=== PATIENT | female | born 1955 | race Caucasian/White ===

== ENCOUNTER → 2016-05-07 | Outpatient (CLI) | payer OTHER ==
[~2016-05-07] MED LIST: ACET-1256 PO; ASCO500T16 PO; ASPI81TA28 PO; B-CO1TAB53 PO; CALC1TAB64 PO; CELE1CAP30 PO; CLC150 PO; FLNIN/ NAE; GLUCTAB7 PO; IPRA1AER2 INH; IPRASOL4 INH; LEVO100T7 PO; LXP/20 PO; LXP10 PO; METH500T37 PO; MOME200A INH; MULTTAB58 PO; NCDT21 TD; NORT75CA PO; NRN600 PO; OMEP20CA9 PO; ONDA-63 PO; POTA20TA16 PO; RXC5 PO; TPM100 PO; WLLSR150 PO; ZCR40 PO
== END | disposition home or self-care (01) ==
LOC: C.LABSPEC 13:38
PROVIDERS: ATTEND Internal Medicine
DX: R19.7 Diarrhea, unspecified (principal)

== ENCOUNTER → 2016-06-23 | Outpatient (CLI) | payer OTHER ==
[2016-07-02 11:48] LABS: O&P SOURCE OTHER-STOOL
== END | disposition home or self-care (01) ==
LOC: C.LABSPEC 12:53
PROVIDERS: ATTEND Internal Medicine
DX: R19.7 Diarrhea, unspecified (principal)

== ENCOUNTER → 2016-08-12 | Outpatient (CLI) | payer OTHER ==
[2016-08-12 18:48] LABS: BLOOD UREA NITROGEN 15 mg/dl (7-18); BUN/CREATININE RATIO 13.2 (10-20); CALCIUM 9.1 mg/dl (8.5-10.1); CARBON DIOXIDE 24 mmol/L (21-32); CHLORIDE 108 mmol/L (98-107); GLUCOSE 93 mg/dl (70-99); POTASSIUM 3.8 mmol/L (3.5-5.1); SODIUM 140 mmol/L (136-145)
[2016-08-12 18:58] LABS: THYROID STIMULATING HORMONE 0.307 uIu/ml (0.300-4.500)
== END | disposition home or self-care (01) ==
LOC: C.LABBFT 15:06
PROVIDERS: ATTEND Physician Assistant Medical
DX: M79.606 Pain in leg, unspecified (principal); E03.9 Hypothyroidism, unspecified

== ENCOUNTER 2016-08-26 20:34 | Emergency (ER) | payer OTHER ==
[~2016-08-26] VITALS: Ht 162.6 cm; Wt 68.9 kg
[2016-08-26 20:35] VITALS: BP 113/73; PULSE 73; TEMP 36.9; O2SAT 100; Ht 162.6 cm; Wt 68.9 kg
--- NOTE | 2016-08-26 20:52 | EMERGENCY ROOM VISIT NOTE ---
History First contact with patient: 20:40 Chief Complaint: NASAL PAIN/INJURY Stated Complaint: HURT NOSE History of Present Illness The patient is a 61 year old female who presents to the Emergency Room with complaints of fall. The patient states that last night she was walking without her cane and she tripped on the sidewalk and fell forward. She reports injuring her nose and the back of her head. She denies any loss of consciousness, nausea or vomiting. She denies any headache. She states she sustained a cut to the outside of her nose and her nose bled from the inside as well. She rates her discomfort a 3/10. She denies any neck pain. She denies any syncope, pain in her chest or trouble feeding. She states she saw her family doctor today and was referred for imaging. Review of Systems A 10 system review of systems was completed with positives and pertinent negatives listed in the HPI. Past Medical/Surgical History Medical Problems: (1) Altered mental status (2) Arthritis of left knee (3) [id number] nonsyndromic deafness, autosomal dominant (4) Cellulitis of left lower extremity (5) Chronic obstructive lung disease (6) Depression (7) Diabetes mellitus (8) Fall (9) Hyperlipidemia (10) Hypothyroidism (11) Kidney stone Family History FH: sudden cardiac (SCD) Heart disease Social History Smoking Status: Current Every Day Smoker Alcohol Use: none Drug Use: none Marital Status: single Housing Status: lives with family Occupation Status: disabled Current/Historical Medications Scheduled Ascorbic Acid (Ascorbic Acid), 500 MG PO QPM Aspirin (Aspirin Ec), 81 MG PO BID B-Complex W/Biotin & Folic Aci (Super B-Complex), 1 TAB PO QPM Bupropion HCl (Bupropion HCl Sr), 150 MG PO BID Calcium Carbonate-Cholecalcife (Calcium 500/Vitamin D3), 1 TAB PO QPM Celecoxib (Celecoxib), 200 MG PO BID Clindamycin HCl (Clindamycin HCl), 300 MG PO Q6 Escitalopram Oxalate (Escitalopram Oxalate), 10 MG PO QAM Escitalopram Oxalate (Escitalopram Oxalate), 20 MG PO QAM Gabapentin (Gabapentin), 600 MG PO QID Vessraiiarm-Wdhwqppirhh-Uzr C- (Glucosamine Chondroitin), 2 TABS PO QPM Levothyroxine Sodium (Levothyroxine Sodium), 100 MCG PO QAM Methocarbamol (Robaxin), 500 MG PO BID Multiple Vitamin (Multivitamin), 1 TAB PO QPM Nicotine (Nicotine), 1 PATCH TD QAM Nortriptyline Hcl (Pamelor), 150 MG PO HS Omeprazole (Prilosec), 20 MG PO QPM Potassium Ext Rel (Klor-Con), 20 MEQ PO QPM Simvastatin (Simvastatin), 40 MG PO HS Topiramate (Topiramate), 200 MG PO BID Scheduled PRN Acetaminophen (Tylenol), 1,000 MG PO Q8 PRN for Pain Fluticasone Propionate (Fluticasone Propionate), 2 SPRAYS BIMAL DAILY PRN for Allergy Symptoms Ipratropium-Albuterol (Combivent Respimat), 1 PUFF INH QID PRN for Shortness of Breath Ipratropium-Albuterol (Duoneb), 1 TREATMENT INH Q6H PRN for Shortness of Breath Mometasone Furoate-Formoterol (Dulera 200/5 Mcg), 2 PUFFS INH BID PRN for Shortness of Breath Ondansetron (Ondansetron HCl), 8 MG PO Q8 PRN for Nausea Oxycodone HCl (Oxycodone HCl), 5 MG PO Q6H PRN for Pain Allergies Coded Allergies: Influenza Vaccine Live (Verified Allergy, Severe, ANAPHYLAXIS, 03/07/16) Physical Exam Vital Signs Date Time Temp Pulse Resp B/P Pulse Ox O2 Delivery O2 Flow Rate FiO2 08/26/16 20:35 36.9 73 20 113/73 100 Room Air Physical Exam VITALS: Vitals are noted on the nurse's note and reviewed by myself. Vital signs stable. GENERAL: This is a 61-year-old female, in no acute distress, nondiaphoretic, well-developed well-nourished. SKIN: There is ecchymosis noted beneath the eyes and around the nose. There is ecchymosis noted to the maxilla. There is a very small, superficial, nonbleeding laceration that measures less than 0.5 cm to the bridge of the nose. It does not gape and there is no active bleeding. There is no tenting of the skin. Capillary reflex less than 2 seconds. HEAD: There is an abrasion to the right posterior scalp. There is no bleeding. EARS: External auditory canals clear, tympanic membranes pearly ramos without erythema or effusion bilaterally. No hemotympanums. No miranda sign. No mastoid tenderness. EYES: Pupils equal round and reactive to light and accommodation. Conjunctivae without injection, sclerae without icterus. Extraocular movements intact. Fundoscopic exam without hemorrhages or papilledema. NOSE: Patent, turbinates without inflammation or discharge. No sinus tenderness. No septal hematoma or bleeding. FACE: No facial tenderness. Full range of motion of the jaw without tenderness. MOUTH: Mucous membranes moist. Pharynx without erythema or exudate. Uvula midline. Airway patent. Tongue does not deviate. NECK: Supple without nuchal rigidity. Cervical spine is nontender. Full range of motion of the neck without tenderness. No JVD. HEART: Regular rate and rhythm without murmurs gallops or rubs. LUNGS: Diminished throughout. No retractions or accessory muscle use. No chest tenderness. ABDOMEN: Positive bowel sounds x 4. Strength Soft, nontender, without masses or organomegaly. MUSCULOSKELETAL: No muscle atrophy, erythema, or edema noted. Full range of motion without joint tenderness in all extremities. No tenderness to palpation. Normal gait. Strength 5/5 throughout. NEURO: Patient was alert and oriented to person place and time. Normal Mini- Mental status exam. No focal neurological deficits. Medical Decision & Procedures ED Course The patient was seen and examined. Previous visits were reviewed. The patient fell last night. She reports a mechanical fall. I saw the patient in D7 and performed an examination. At the end of the exam, she stated she saw her family doctor and was referred here for imaging. She states she believes that there was an order placed. I did look through the order history on the computer and could not find any imaging ordered. I did order CT imaging. At this time, I spoke with the charge nurse, Laurita, she spoke with the patient and with registration unverified there was an outpatient order for x-ray., The patient only wanted to have the x-ray performed and wanted to leave the emergency department. Therefore, the imaging was canceled and she left the ED. Apparently, the patient was sent to an brought back to the emergency department in error and was simply to have an outpatient x-ray performed for which she had an order. Medical Decision The differential diagnosis includes: head or neck trauma, cerebrovascular disorders, intracranial lesions, infection,transient ischemic attack (TIA), CVA , seizure, syncope, intracranial mass, intracranial bleeding and vestibular disorders, nasal fracture, facial fracture, among others among others Departure Information Referrals Henry White M.D. (PCP) Patient Instructions My [facility]
== END 2016-08-26 21:45 | disposition home or self-care (01) ==
LOC: C.EDB 20:34 → C.EDD 21:45
DX: S09.92XA Unspecified injury of nose, initial encounter (principal); W19.XXXA Unspecified fall, initial encounter; Z91.19 Patient's noncompliance with other medical treatment and regimen; E78.5 Hyperlipidemia, unspecified; E11.9 Type 2 diabetes mellitus without complications; E03.9 Hypothyroidism, unspecified; J44.9 Chronic obstructive pulmonary disease, unspecified; F32.9 Major depressive disorder, single episode, unspecified; M17.12 Unilateral primary osteoarthritis, left knee; F17.200 Nicotine dependence, unspecified, uncomplicated; Z87.442 Personal history of urinary calculi; Z91.81 History of falling; Z79.82 Long term (current) use of aspirin; Z79.899 Other long term (current) drug therapy; Z88.8 Allergy status to other drugs, medicaments and biological substances; Z82.49 Family history of ischemic heart disease and other diseases of the circulatory system

== ENCOUNTER → 2016-09-04 | Day surgery (SDC) | payer OTHER ==
[2016-08-30 10:40] VITALS: Ht 162.6 cm; Wt 69.5 kg
[~2016-09-04] VITALS: Ht 162.6 cm; Wt 69.5 kg
[~2016-09-04] MED LIST changes: +LIDOCAINE HCL 2% 2 ML VIAL (20MG/ML) ONE; +PROPOFOL IV EMULSION 10 MG/ML 20 ML VIAL IV ONE; +SODIUM CHLORIDE 0.9% 500ML 500 ML IV ONE
[2016-09-04 11:37] VITALS: TEMP 36.8
--- NOTE | 2016-09-04 12:54 | Endo History and Physical ---
History & Physical Date of Service: September 04, 2016. Chief Complaint: diarrhea Referring Physician: Dr. Henry White History of Present Illness 61 yo CF who presents for colonoscopy secondary to diarrhea. Past Medical History Arthritis, Asthma, Reflux, Hypertension, Thyroid Disease, Depression Past Surgical History Hx Cardiac Surgery: No Hx Internal Defibrillator: No Hx Pacemaker: No Hx Abdominal Surgery: Yes (TUBAL LIGATION) Hx of Implantable Prosthesis: No Hx Post-Op Nausea and Vomiting: No Hx Cancer Surgery: No Hx Thoracic Surgery: No Hx Orthopedic: Yes (RT/LT CTR, LT TKA) Hx Urinary Tract Surgery: No Family History Colon CA Social History Smoking Status: Current Every Day Smoker Hx Substance Use: No Hx Alcohol Use: No Allergies Coded Allergies: Influenza Vaccine Live (Verified Allergy, Severe, ANAPHYLAXIS, 08/30/16) Current Medications Reported Home Medications Medications Dose Route/Sig Max Daily Dose Days Date Category Dose Instructions Tylenol (Acetaminophen) 500 Mg Tab 1,000 Mg PO Q8 PRN 03/23/16 Reported Topiramate 100 Mg Tab 200 Mg PO BID 03/23/16 Reported Gabapentin 600 Mg Tab 600 Mg PO QID 03/23/16 Reported Celecoxib 200 Mg Cap 200 Mg PO BID 03/23/16 Reported Bupropion HCl Sr (Bupropion HCl) 150 Mg Tabcr 150 Mg PO BID 03/23/16 Reported Escitalopram Oxalate 20 Mg Tab 20 Mg PO QAM 03/23/16 Reported TAKE ONE 20 MG TABLET ALONG WITH ONE 10 MG TABLET TO EQUAL DAILY DOSE OF 30 MG. Escitalopram Oxalate 10 Mg Tab 10 Mg PO QAM 03/23/16 Reported TAKE ONE 10 MG TABLET ALONG WITH ONE 20 MG TABLET TO EQUAL DAILY DOSE OF 30 MG. Prilosec (Omeprazole) 20 Mg Cap 20 Mg PO QPM 03/23/16 Reported Dulera 200/5 Mcg (Mometasone Furoate-Formoterol) 1 Aer Aer 2 Puffs INH BID PRN 03/23/16 Reported Fluticasone Propionate 120 Sprays/6000 Mcg Inha 2 Sprays BIMAL DAILY PRN 03/23/16 Reported Simvastatin 40 Mg Tab 40 Mg PO HS 03/23/16 Reported Robaxin (Methocarbamol) 500 Mg Tab 500 Mg PO BID 02/21/16 Reported Klor-Con (Potassium Chloride) 20 Meq Tabcr 20 Meq PO QPM 02/21/16 Reported Levothyroxine Sodium 100 Mcg Tab 100 Mcg PO QAM 02/21/16 Reported Duoneb (Ipratropium-Albuterol) 3 Ml Nebu 1 Treatment INH Q6H PRN 07/18/15 Reported Combivent Respimat (Ipratropium-Albuterol) 1 Aer Aer 1 Puff INH QID PRN 04/14/15 Reported Calcium 500/Vitamin D3 (Calcium Carbonate-Cholecalcife) 1 Tab Tab 1 Tab PO QPM 04/14/15 Reported Ascorbic Acid 500 Mg Tab 500 Mg PO QPM 04/14/15 Reported Multivitamin (Multiple Vitamin) 1 Tab Tab 1 Tab PO QPM 04/14/15 Reported Super B-Complex (B-Complex W/Biotin & Folic Aci) 1 Tab Tab 1 Tab PO QPM 04/14/15 Reported Pamelor (Nortriptyline Hcl) 75 Mg Cap 150 Mg PO HS 01/27/12 Reported Vital Signs Weight (Kilograms): 69.55 Height (Feet): 5 Height (Inches): 4 Date Time Temp Pulse Resp B/P Pulse Ox O2 Delivery O2 Flow Rate FiO2 09/04/16 11:37 36.8 79 20 123/57 92 Room Air Physical Exam General Appearance: WD/WN, no apparent distress Respiratory/Chest: Auscultation: breath sounds normal Cardiovascular: Heart Auscultation: RRR Abdomen: Bowel Sounds: normal Inspection & Palpation: soft, non-distended, no tenderness, guarding & rebound Assessment and Plan Assessment: 61 yo CF who presents for colonoscopy secondary to diarrhea. Plan: Proceed with colonoscopy.
--- NOTE | 2016-09-04 13:18 | Discharge Instructions ---
Endoscopy Patient Instructions Date / Procedure(s) Performed September 04, 2016. Colonoscopy Allergy Information Coded Allergies: Influenza Vaccine Live (Verified Allergy, Severe, ANAPHYLAXIS, 08/30/16) Discharge Date / Findings September 04, 2016. Random colon biopsies Stools studies collected Internal hemorrhoids Medication Instructions OK to resume all medications today as prescribed Reported Home Medications Medications Dose Route/Sig Max Daily Dose Days Date Category Dose Instructions Tylenol (Acetaminophen) 500 Mg Tab 1,000 Mg PO Q8 PRN 03/23/16 Reported Topiramate 100 Mg Tab 200 Mg PO BID 03/23/16 Reported Gabapentin 600 Mg Tab 600 Mg PO QID 03/23/16 Reported Celecoxib 200 Mg Cap 200 Mg PO BID 03/23/16 Reported Bupropion HCl Sr (Bupropion HCl) 150 Mg Tabcr 150 Mg PO BID 03/23/16 Reported Escitalopram Oxalate 20 Mg Tab 20 Mg PO QAM 03/23/16 Reported TAKE ONE 20 MG TABLET ALONG WITH ONE 10 MG TABLET TO EQUAL DAILY DOSE OF 30 MG. Escitalopram Oxalate 10 Mg Tab 10 Mg PO QAM 03/23/16 Reported TAKE ONE 10 MG TABLET ALONG WITH ONE 20 MG TABLET TO EQUAL DAILY DOSE OF 30 MG. Prilosec (Omeprazole) 20 Mg Cap 20 Mg PO QPM 03/23/16 Reported Dulera 200/5 Mcg (Mometasone Furoate-Formoterol) 1 Aer Aer 2 Puffs INH BID PRN 03/23/16 Reported Fluticasone Propionate 120 Sprays/6000 Mcg Inha 2 Sprays BIMAL DAILY PRN 03/23/16 Reported Simvastatin 40 Mg Tab 40 Mg PO HS 03/23/16 Reported Robaxin (Methocarbamol) 500 Mg Tab 500 Mg PO BID 02/21/16 Reported Klor-Con (Potassium Chloride) 20 Meq Tabcr 20 Meq PO QPM 02/21/16 Reported Levothyroxine Sodium 100 Mcg Tab 100 Mcg PO QAM 02/21/16 Reported Duoneb (Ipratropium-Albuterol) 3 Ml Nebu 1 Treatment INH Q6H PRN 07/18/15 Reported Combivent Respimat (Ipratropium-Albuterol) 1 Aer Aer 1 Puff INH QID PRN 04/14/15 Reported Calcium 500/Vitamin D3 (Calcium Carbonate-Cholecalcife) 1 Tab Tab 1 Tab PO QPM 04/14/15 Reported Ascorbic Acid 500 Mg Tab 500 Mg PO QPM 04/14/15 Reported Multivitamin (Multiple Vitamin) 1 Tab Tab 1 Tab PO QPM 04/14/15 Reported Super B-Complex (B-Complex W/Biotin & Folic Aci) 1 Tab Tab 1 Tab PO QPM 04/14/15 Reported Pamelor (Nortriptyline Hcl) 75 Mg Cap 150 Mg PO HS 01/27/12 Reported Provider Instructions Activity Restrictions - No exercising or heavy lifting for 24 hours. - Do not drink alcohol the day of the procedure. - Do not drive a car or operate machinery until the day after the procedure. - Do not make any important decisions or sign important papers in 24 hours after the procedure. Following Day: - Return to full activity which may include returning to work/school. Diet Start your diet with liquids and light foods (jello, soup, juice, toast). Then eat your usual diet if not nauseated. Treatment For Common After Affects For mild abdominal pain, bloating, or excessive gas: - Rest - Eat lightly - Lie on right side Follow-Up Information Follow-up with Dr. Henry White as scheduled Anesthesia Information What You Should Know You have had a procedure that required some medicine to reduce anxiety and discomfort. This treatment is called moderate sedation. After receiving the treatment, you may be sleepy, but you will be able to breathe on your own. The effects of the treatment may last for several hours. Follow these instructions along with Activity/Diet recommendations noted above: * Do NOT do anything where dizziness or clumsiness would be dangerous. * Rest quietly at home today, then you can be up and about tomorrow. * Have a responsible person stay with you the rest of today. * You may have had an I.V. today. If so, you may take the dressing off later today. Recommendations Call your doctor if: * Trouble breathing * Continuous vomiting for more than 24 hours * Temperature above 101 degrees * Severe abdominal pain or bloating * Pain not relieved by pain medicine ordered * There is increased drainage or redness from any incision * A large amount of rectal bleeding greater than 2-3 tablespoons. (If you had a polyp/s removed or have hemorrhoids, a small amount of blood - from the rectum is to be expected.) * You have any unanswered questions or concerns. IN THE EVENT OF A SERIOUS EMERGENCY, GO TO THE NEAREST EMERGENCY ROOM Your discharge instructions were prepared by provider Eduin Mireles. Patient Instructions Signature Page Cass Rashid Patient (or Guardian) Signature/Date: I have read and understand the instructions given to me by my caregivers. Caregiver/RN/Doctor Signature/Date: The above-named patient and/or guardian has received patient instructions on this date. + Original Patient Signature Page (only) stays with chart. Please make copy for patient.
--- NOTE | 2016-09-04 13:24 | GI REPORT ---
Procedure Date: 09/04/2016 12:37 PM Procedure: Colonoscopy Indications: Chronic diarrhea Medicines: Monitored Anesthesia Care Complications: No immediate complications. Estimated Blood Loss: Estimated blood loss: none. Procedure: Pre-Anesthesia Assessment: - Prior to the procedure, a History and Physical was performed, and patient medications and allergies were reviewed. The patient's tolerance of previous anesthesia was also reviewed. The risks and benefits of the procedure and the sedation options and risks were discussed with the patient. All questions were answered, and informed consent was obtained. Prior Anticoagulants: The patient has taken no previous anticoagulant or antiplatelet agents. ASA Grade Assessment: III - A patient with severe systemic disease. After reviewing the risks and benefits, the patient was deemed in satisfactory condition to undergo the procedure. After I obtained informed consent, the scope was passed under direct vision. Throughout the procedure, the patient's blood pressure, pulse, and oxygen saturations were monitored continuously. The scope was introduced through the anus and advanced to the terminal ileum. The colonoscopy was performed without difficulty. The patient tolerated the procedure well. The quality of the bowel preparation was fair. The terminal ileum, ileocecal valve, appendiceal orifice, and rectum were photographed. Findings: Non-bleeding internal hemorrhoids were found during retroflexion. The hemorrhoids were small. Several random biopsies were obtained with cold forceps for histology in the entire colon. Fluid aspiration for cytology was performed in the entire colon. Impression: - Non-bleeding internal hemorrhoids. - Several random biopsies were obtained in the entire colon. - Fluid aspiration was performed. Recommendation: - Resume previous diet. - Continue present medications. - Repeat colonoscopy for surveillance based on pathology results. - Return to primary care physician as previously scheduled. Eduin Mrieles DO 09/04/2016 1:23:53 PM This report has been signed electronically. Note Initiated On: 09/04/2016 12:37 PM I attest to the content of the Intraoperative Record and orders documented therein, exceptions below
[2016-09-04 13:47] VITALS: BP 136/68; PULSE 60; O2SAT 99
--- NOTE | 2016-09-04 13:47 | Anesthesiology Progress Note ---
Anesthesia Post Op Note Date & Time September 04, 2016 at 13:47 Vital Signs Pain Intensity: 0 Vital Signs Past 12 Hours Date Time Temp Pulse Resp B/P Pulse Ox O2 Delivery O2 Flow Rate FiO2 09/04/16 13:32 64 18 132/58 99 Room Air 09/04/16 13:17 63 16 139/66 100 Room Air 09/04/16 11:37 36.8 79 20 123/57 92 Room Air Notes Mental Status: alert / awake / arousable, participated in evaluation Pt Amnestic to Procedure: Yes Nausea / Vomiting: adequately controlled Pain: adequately controlled Airway Patency, RR, SpO2: stable & adequate BP & HR: stable & adequate Hydration State: stable & adequate Anesthetic Complications: no major complications apparent
== END | disposition home or self-care (01) ==
LOC: C.GI 10:59
PROVIDERS: ATTEND Internal Medicine
DX: K52.9 Noninfective gastroenteritis and colitis, unspecified (principal); K64.8 Other hemorrhoids; K21.9 Gastro-esophageal reflux disease without esophagitis; F32.9 Major depressive disorder, single episode, unspecified; I10 Essential (primary) hypertension; J45.909 Unspecified asthma, uncomplicated; Z98.51 Tubal ligation status; F17.200 Nicotine dependence, unspecified, uncomplicated; Z96.652 Presence of left artificial knee joint; Z68.26 Body mass index [BMI] 26.0-26.9, adult; Z88.7 Allergy status to serum and vaccine; Z80.0 Family history of malignant neoplasm of digestive organs

== ENCOUNTER → 2017-01-17 | Outpatient (CLI) | payer OTHER ==
[~2017-01-17] MED LIST changes: -ASPI81TA28 PO; -CLC150 PO; -GLUCTAB7 PO; -LIDOCAINE HCL 2% 2 ML VIAL (20MG/ML) ONE; -NCDT21 TD; -ONDA-63 PO; -PROPOFOL IV EMULSION 10 MG/ML 20 ML VIAL IV ONE; -RXC5 PO; -SODIUM CHLORIDE 0.9% 500ML 500 ML IV ONE
--- NOTE | 2017-01-17 14:54 | MAMMOGRAPHY REPORT ---
BILATERAL DIGITAL SCREENING MAMMOGRAM TOMOSYNTHESIS WITH CAD: 01/17/2017 CLINICAL HISTORY: Routine screening. Patient has no complaints. TECHNIQUE: Breast tomosynthesis in addition to standard 2D mammography was performed. Current study was also evaluated with a Computer Aided Detection (CAD) system. COMPARISON: Comparison is made to exams dated: 08/03/2013 mammogram, 04/25/2011 mammogram, 04/23/2010 kim mogram, 04/19/2009 mammogram - [facility], 04/18/2008, and 04/17/2007. BREAST COMPOSITION: There are scattered areas of fibroglandular density in both breasts. FINDINGS: No suspicious masses, calcifications, or areas of architectural distortion are noted in ei ther breast. There has been no significant interval change compared to prior exams. IMPRESSION: ACR BI-RADS CATEGORY 1: NEGATIVE There is no mammographic evidence of malignancy. A 1 year screening mammogram is recommended. The pa tient will receive written notification of the results. Approximately 10% of breast cancers are not detected with mammography. A negative mammographic report should not delay biopsy if a clinically suggestive mass is present. Jena Donohue M.D. /:01/17/2017 12:29:30 Area Director: Lory SOOD)([place]), [facility] letter sent: Normal 1/2 BI-RADS Code: ACR BI-RADS Category 1: Negative
== END | disposition home or self-care (01) ==
LOC: C.MAMM 11:04
PROVIDERS: ATTEND Internal Medicine
DX: Z12.31 Encounter for screening mammogram for malignant neoplasm of breast (principal)

== ENCOUNTER → 2017-01-27 | Outpatient (CLI) | payer OTHER ==
[2017-01-27 12:16] LABS: BASO ABS # 0.06 K/uL (0-0.2); COMPLETE YES; EOS % 2.3 %; HEMATOCRIT 38.4 % (37-47); IG% 0.2 %; LYMPH % 38.4 %; LYMPH ABS # 2.37 K/uL (1.2-3.4); MEAN CORPUSCULAR HEMOGLOBIN 31.6 pg (25-34); MEAN CORPUSCULAR HGB CONC 32.6 g/dl (32-36); MEAN PLATELET VOLUME 10.5 fL (7.4-10.4); MONO % 11.2 %; NEUT % 46.9 %; PLATELET COUNT 269 K/uL (130-400); RED BLOOD COUNT 3.96 M/uL (4.2-5.4); WHITE BLOOD COUNT 6.17 K/uL (4.8-10.8)
[2017-01-27 13:39] LABS: ALT/SGPT 15 U/L (12-78); BLOOD UREA NITROGEN 8 mg/dl (7-18); BUN/CREATININE RATIO 8.8 (10-20); CALCIUM 9.3 mg/dl (8.5-10.1); CARBON DIOXIDE 25 mmol/L (21-32); CHLORIDE 113 mmol/L (98-107); CHOLESTEROL 220 mg/dl (0-200); CREATININE 0.95 mg/dl (0.60-1.20); GLUCOSE 90 mg/dl (70-99); POTASSIUM 4.3 mmol/L (3.5-5.1); SODIUM 144 mmol/L (136-145); TRIGLYCERIDES 175 mg/dl (0-150); VERY LOW DENSITY LIPOPROT CALC 35 mg/dl
[2017-01-27 13:50] LABS: ALKALINE PHOSPHATASE 105 U/L (45-117); AST/SGOT 11 U/L (15-37); CHOLESTEROL/HDL RATIO 4.7; HDL CHOLESTEROL 47 mg/dl; LDL CHOLESTEROL CALCULATED 138 mg/dl; THYROID STIMULATING HORMONE 0.523 uIu/ml (0.300-4.500)
== END | disposition home or self-care (01) ==
LOC: C.LABBFT 09:43
PROVIDERS: ATTEND Nurse Practitioner
DX: E03.9 Hypothyroidism, unspecified (principal); K52.832 Lymphocytic colitis; R73.01 Impaired fasting glucose; E78.00 Pure hypercholesterolemia, unspecified; I10 Essential (primary) hypertension

== ENCOUNTER → 2017-05-20 | Outpatient (CLI) | payer OTHER ==
[~2017-05-20] MED LIST changes: -CELE1CAP30 PO; -NORT75CA PO; -OMEP20CA9 PO; -POTA20TA16 PO; -WLLSR150 PO; +ZNTT/150 PO
[2017-05-20 17:32] LABS: BASO % 0.4 %; BASO ABS # 0.03 K/uL (0-0.2); EOS % 1.2 %; EOS ABS # 0.09 K/uL (0-0.5); HEMATOCRIT 40.7 % (37-47); HEMOGLOBIN 13.4 g/dL (12.0-16.0); IG# 0.02 K/uL (0.00-0.02); LYMPH % 33.8 %; LYMPH ABS # 2.62 K/uL (1.2-3.4); MEAN CELL VOLUME 99.3 fL (80-100); MEAN CORPUSCULAR HEMOGLOBIN 32.7 pg (25-34); MEAN CORPUSCULAR HGB CONC 32.9 g/dl (32-36); MEAN PLATELET VOLUME 11.4 fL (7.4-10.4); MONO % 8.4 %; MONO ABS # 0.65 K/uL (0.11-0.59); NEUT % 55.9 %; NEUT ABS # 4.34 K/uL (1.4-6.5); PLATELET COUNT 234 K/uL (130-400); RED CELL DISTRIBUTION WIDTH CV 13.4 % (11.5-14.5); RED CELL DISTRIBUTION WIDTH SD 48.3 fL (36.4-46.3); WHITE BLOOD COUNT 7.75 K/uL (4.8-10.8)
[2017-05-20 17:48] LABS: ALBUMIN 3.7 gm/dl (3.4-5.0); ALT/SGPT 21 U/L (12-78); AST/SGOT 17 U/L (15-37); BLOOD UREA NITROGEN 8 mg/dl (7-18); CALCIUM 9.1 mg/dl (8.5-10.1); CARBON DIOXIDE 24 mmol/L (21-32); CREATININE 0.94 mg/dl (0.60-1.20); GLUCOSE 88 mg/dl (70-99); POTASSIUM 3.8 mmol/L (3.5-5.1); SODIUM 138 mmol/L (136-145)
[2017-05-20 17:58] LABS: ALKALINE PHOSPHATASE 99 U/L (45-117)
== END | disposition home or self-care (01) ==
LOC: C.LABBFT 11:43
PROVIDERS: ATTEND Physician Assistant Medical
DX: R00.1 Bradycardia, unspecified (principal)

== ENCOUNTER → 2017-06-10 | Day surgery (SDC) | payer OTHER ==
[2017-05-16 13:22] VITALS: Ht 162.6 cm; Wt 59.1 kg
[~2017-06-10] VITALS: Ht 162.6 cm; Wt 59.1 kg
[~2017-06-10] MED LIST changes: +500ML BSS 0.3ML EPI 1:1000PF IRRIG ONE; +ACETAMINOPHEN 325 MG TAB PO PRN; +AMVISC PLUS 0.8ML SYRINGE INT OCU ONE; +ATROPINE SULFATE 0.1 MG/ML 5ML SYR IV PRN; +BSS FLUSH ONE; +EpHEDrine SULFATE INJ 50 MG/ML AMP IV PRN; +EpINEphrine INJ 1MG/ML AMP 1 MG/ML AMP ONE; +LACTATED RINGER'S 1000ML 500 ML IV SCH; +LIDOCAINE 3.5% OPH GEL PER APPLICATION CHARGE ONE; +LIDOCAINE HCL 1% MPF 2 ML VIAL ONE; +MIDAZOLAM HCL 1 MG/ML 2ML VIAL ONE; +POVIDONE-IODINE OP SOLN 30 ML BTL ONE; +PROPARACAINE 0.5% OP SOLN PER DROP CHARGE OPR SCH; +RANI150T85 PO; +TOBRAMYCIN/DEXAMETHASONE OPH OINT PER APPLN CHARGE ONE; -ZNTT/150 PO
[2017-06-10] MEDS: PHENYLEPHRINE HCL 2.5% OP SOLN PER DROP CHARGE OPR SCH ×2 (07:09→07:16)
[2017-06-10] MEDS: TROPICAMIDE 1% OP SOLN PER DROP CHARGE OPR SCH ×2 (07:10→07:17)
[2017-06-10] MEDS: CYCLOPENTOLATE HCL 1% OP SOLN PER DROP CHARGE OPR SCH ×2 (07:12→07:18)
[2017-06-10] MEDS: KETOROLAC 0.5% OP SOLN PER DROP CHARGE OPR SCH ×2 (07:13→07:19)
[2017-06-10] MEDS: GATIFLOXACIN OP SOLN PER DROP CHARGE OPR SCH ×2 (07:14→07:24)
--- NOTE | 2017-06-10 07:22 | History & Physical Bridge - SC ---
H&P Re-Evaluation Bridge Note: I have examined the patient, reviewed the History & Physical and in the interval since the performance of the History & Physical I have noted the following changes of clinical significance: Diagnosis: Right Cataract Procedure: Right Cataract Removal with Lens Implant No changes noted
--- NOTE | 2017-06-10 07:56 | [facility] Operative Report ---
Operative Report Date of Service Jun 10, 2017. Operative Report 1. PREOPERATIVE DIAGNOSIS: Cataract of the right eye. 2. POSTOPERATIVE DIAGNOSIS: Same. 3. PROCEDURE: Phacoemulsification with intraocular lens implantation of the right eye. SURGEON: Dr. Gene Kramer. ANESTHESIA: Topical Lidocaine gel, 1% Non- Preserved intracameral Lidocaine, and monitored intravenous sedation. INDICATIONS FOR THE PROCEDURE: The patient is a 62 - year-old female with a history of cataract of the right eye causing significant visual impairment. The details of the proposed procedure were explained to the patient who asked appropriate questions and following discussion of all risks, benefits and alternatives agreed to have the procedure done. 4. OPERATION AND FINDINGS: DESCRIPTION OF PROCEDURE: After informed consent was obtained, the patient was brought to the Operating Room at the [facility]. The patient was placed in a supine position and then the right eye was prepped and draped in the usual sterile fashion for intraocular surgery. A drop of topical Lidocaine gel was placed in the operative eye. A wire lid speculum was then placed in the fornices. A corneal paracentesis was then created temporally. The Non-Preserved Lidocaine was then instilled into the anterior chamber. The anterior chamber was then pressurized with viscoelastic. A 2.0 mm clear corneal incision was then created temporally. A cystotome was inserted into the anterior chamber and used to create a tear in the anterior lens capsule. This capsular tear was then used to create a small flap and the flap was dragged in a counterclockwise direction in order to create a continuous curvilinear capsulorrhexis. Hydrodissection was accomplished with balanced salt solution. Phacoemulsification of the lens nucleus was then performed in a standard [id number] technique. The phaco time was 17 seconds with an average power of 12 %. The remaining cortical material was removed using irrigation aspiration. The capsular bag was then filled with viscoelastic. A [employer] MI60L +16.0 diopters lens was then loaded into the injector and injected into the capsular bag. The remaining viscoelastic was removed with the irrigation aspiration handpiece. The wound was hydrated and then checked and found to be watertight. The intraocular pressure was checked and found to be adequate. The wire lid speculum was removed and the patient's face was cleaned and dried. TobraDex ointment was placed in the inferior fornix. The patient was discharged to the Recovery Room having tolerated the procedure well. There were no complications. The patient will be seen tomorrow in the office for follow-up. I attest to the content of the Intraoperative Record and any orders documented therein. Any exceptions are noted below.
--- NOTE | 2017-06-10 07:57 | Discharge Instructions-SurgCtr ---
Discharge Instructions Date of Service Jun 10, 2017. Visit Reason for Visit: Cataract Right Eye Discharge Discharge Diagnosis / Problem: cataract Discharge Goals Goal(s): Improve function Activity Recommendations Activity Limitations: per Instructions/Follow-up section Anesthesia . Post Anesthesia Instructions: If you have had General Anesthesia or IV Sedation: * Do not drive today. * Resume driving when surgeon permits. * Do not make important decisions or sign legal documents today. * Call surgeon for: 1. Temperature elevations greater than 101 degrees F. 2. Uncontrollable pain. 3. Excessive bleeding. 4. Persistent nausea and vomiting. 5. Medication intolerance (nausea, vomiting or rash). * For nausea and vomiting use only clear liquids such as: tea, soda, bouillon until nausea subsides, then gradually increase diet as tolerated. * If you have any concerns or questions, call your surgeon's office. If physician is unavailable and it is an emergency, call 911 or go to the nearest emergency room. . Diet Recommendations Home Diet: resume previous diet Procedures Procedures Performed: Right Cataract Phacoemulsification With Intraocular Pending Studies Studies pending at discharge: no Medical Emergencies . Who to Call and When: Medical Emergencies: If at any time you feel your situation is an emergency, please call 911 immediately. . Non-Emergent Contact Non-Emergency issues call your: Guest Services Director . . "Provider Documentation" section prepared by Gene Kramer. .
[2017-06-10 08:00] VITALS: TEMP 36.4
--- NOTE | 2017-06-10 08:26 | Anesthesia Progress Nt - [facility] ---
Anesthesia Post Op Note Date & Time Jun 10, 2017 at 08:26 Vital Signs Pain Intensity: 0 Vital Signs Past 12 Hours Date Time Temp Pulse Resp B/P (MAP) Pulse Ox O2 Delivery O2 Flow Rate FiO2 06/10/17 08:00 36.4 51 12 103/58 (73) 100 Room Air 06/10/17 07:03 36.8 58 20 115/73 (87) 97 Room Air Notes Mental Status: alert / awake / arousable, participated in evaluation Pt Amnestic to Procedure: Yes Nausea / Vomiting: adequately controlled Pain: adequately controlled Airway Patency, RR, SpO2: stable & adequate BP & HR: stable & adequate Hydration State: stable & adequate Anesthetic Complications: no major complications apparent
[2017-06-10 08:30] VITALS: BP 104/61; PULSE 50; O2SAT 99
== END | disposition home or self-care (01) ==
LOC: X.SURG 06:52
PROVIDERS: ATTEND Ophthalmology
DX: H26.9 Unspecified cataract (principal); R00.1 Bradycardia, unspecified; J44.9 Chronic obstructive pulmonary disease, unspecified; J45.909 Unspecified asthma, uncomplicated; I10 Essential (primary) hypertension; F17.200 Nicotine dependence, unspecified, uncomplicated; Z88.7 Allergy status to serum and vaccine; E78.00 Pure hypercholesterolemia, unspecified; E03.9 Hypothyroidism, unspecified; Z96.652 Presence of left artificial knee joint; Z98.51 Tubal ligation status; Z83.79 Family history of other diseases of the digestive system; Z80.0 Family history of malignant neoplasm of digestive organs

== ENCOUNTER → 2017-07-01 | Day surgery (SDC) | payer OTHER ==
[2017-06-17 13:32] VITALS: Ht 162.6 cm; Wt 59.1 kg
[~2017-07-01] VITALS: Ht 162.6 cm; Wt 59.1 kg
[~2017-07-01] MED LIST changes: +OCUCOAT 1 ML SOLN IO ONE; +PROPARACAINE 0.5% OP SOLN PER DROP CHARGE OPL SCH; -PROPARACAINE 0.5% OP SOLN PER DROP CHARGE OPR SCH
[2017-07-01] MEDS: PHENYLEPHRINE HCL 2.5% OP SOLN PER DROP CHARGE OPL SCH ×2 (06:45→06:50)
[2017-07-01] MEDS: TROPICAMIDE 1% OP SOLN PER DROP CHARGE OPL SCH ×2 (06:46→06:51)
[2017-07-01] MEDS: CYCLOPENTOLATE HCL 1% OP SOLN PER DROP CHARGE OPL SCH ×2 (06:47→06:52)
[2017-07-01] MEDS: KETOROLAC 0.5% OP SOLN PER DROP CHARGE OPL SCH ×2 (06:48→06:53)
[2017-07-01] MEDS: GATIFLOXACIN OP SOLN PER DROP CHARGE OPL SCH ×2 (06:49→07:02)
--- NOTE | 2017-07-01 06:53 | History & Physical Bridge - [place] ---
H&P Re-Evaluation Bridge Note: I have examined the patient, reviewed the History & Physical and in the interval since the performance of the History & Physical I have noted the following changes of clinical significance: No changes noted
--- NOTE | 2017-07-01 07:37 | [facility] Operative Report ---
Operative Report Date of Service Jul 01, 2017. Operative Report 1. PREOPERATIVE DIAGNOSIS: Cataract of the left eye. 2. POSTOPERATIVE DIAGNOSIS: Same. 3. PROCEDURE: Phacoemulsification with intraocular lens implantation of the left eye. SURGEON: Dr. Gene Kramer. ANESTHESIA: Topical Lidocaine gel, 1% Non- Preserved intracameral Lidocaine, and monitored intravenous sedation. INDICATIONS FOR THE PROCEDURE: The patient is a 62 - year-old female with a history of cataract of the left eye causing significant visual impairment. The details of the proposed procedure were explained to the patient who asked appropriate questions and following discussion of all risks, benefits and alternatives agreed to have the procedure done. 4. OPERATION AND FINDINGS: DESCRIPTION OF PROCEDURE: After informed consent was obtained, the patient was brought to the Operating Room at the [facility]. The patient was placed in a supine position and then the left eye was prepped and draped in the usual sterile fashion for intraocular surgery. A drop of topical Lidocaine gel was placed in the operative eye. A wire lid speculum was then placed in the fornices. A corneal paracentesis was then created temporally. The Non-Preserved Lidocaine was then instilled into the anterior chamber. The anterior chamber was then pressurized with viscoelastic. A 2.0 mm clear corneal incision was then created temporally. A cystotome was inserted into the anterior chamber and used to create a tear in the anterior lens capsule. This capsular tear was then used to create a small flap and the flap was dragged in a counterclockwise direction in order to create a continuous curvilinear capsulorrhexis. Hydrodissection was accomplished with balanced salt solution. Phacoemulsification of the lens nucleus was then performed in a standard [id number] technique. The phaco time was 15 seconds with an average power of 10 %. The remaining cortical material was removed using irrigation aspiration. The capsular bag was then filled with viscoelastic. A B[employer]ch [employer] Lomb MI60L +17.0 diopters lens was then loaded into the injector and injected into the capsular bag. The remaining viscoelastic was removed with the irrigation aspiration handpiece. The wound was hydrated and then checked and found to be watertight. The intraocular pressure was checked and found to be adequate. The wire lid speculum was removed and the patient's face was cleaned and dried. TobraDex ointment was placed in the inferior fornix. The patient was discharged to the Recovery Room having tolerated the procedure well. There were no complications. The patient will be seen tomorrow in the office for follow-up. I attest to the content of the Intraoperative Record and any orders documented therein. Any exceptions are noted below.
--- NOTE | 2017-07-01 07:38 | Discharge Instructions-SurgCtr ---
Discharge Instructions Date of Service Jul 01, 2017. Visit Reason for Visit: Cataract Left Eye Discharge Discharge Diagnosis / Problem: cataract Discharge Goals Goal(s): Improve function Activity Recommendations Activity Limitations: per Instructions/Follow-up section Anesthesia . Post Anesthesia Instructions: If you have had General Anesthesia or IV Sedation: * Do not drive today. * Resume driving when surgeon permits. * Do not make important decisions or sign legal documents today. * Call surgeon for: 1. Temperature elevations greater than 101 degrees F. 2. Uncontrollable pain. 3. Excessive bleeding. 4. Persistent nausea and vomiting. 5. Medication intolerance (nausea, vomiting or rash). * For nausea and vomiting use only clear liquids such as: tea, soda, bouillon until nausea subsides, then gradually increase diet as tolerated. * If you have any concerns or questions, call your surgeon's office. If physician is unavailable and it is an emergency, call 911 or go to the nearest emergency room. . Diet Recommendations Home Diet: resume previous diet Procedures Procedures Performed: Left Cataract Phacoemulsification With Intraocular Lens Implant Pending Studies Studies pending at discharge: no Medical Emergencies . Who to Call and When: Medical Emergencies: If at any time you feel your situation is an emergency, please call 911 immediately. . Non-Emergent Contact Non-Emergency issues call your: [employer] . . "Provider Documentation" section prepared by Gene Kramer. .
[2017-07-01 07:39] VITALS: TEMP 36.6
--- NOTE | 2017-07-01 07:52 | Anesthesia Progress Nt - [facility] ---
Anesthesia Post Op Note Date & Time Jul 01, 2017 at 07:52 Vital Signs Pain Intensity: 0 Vital Signs Past 12 Hours Date Time Temp Pulse Resp B/P (MAP) Pulse Ox O2 Delivery O2 Flow Rate FiO2 07/01/17 07:39 36.6 51 16 134/76 (95) 100 Room Air 07/01/17 06:34 36.7 53 16 115/67 (83) 96 Room Air Notes Mental Status: alert / awake / arousable, participated in evaluation Pt Amnestic to Procedure: Yes Nausea / Vomiting: adequately controlled Pain: adequately controlled Airway Patency, RR, SpO2: stable & adequate BP & HR: stable & adequate Hydration State: stable & adequate Anesthetic Complications: no major complications apparent
[2017-07-01 08:08] VITALS: BP 123/68; PULSE 51; O2SAT 100
== END | disposition home or self-care (01) ==
LOC: X.SURG 06:13
PROVIDERS: ATTEND Ophthalmology
DX: H26.9 Unspecified cataract (principal); I10 Essential (primary) hypertension; K21.9 Gastro-esophageal reflux disease without esophagitis; E03.9 Hypothyroidism, unspecified; J44.9 Chronic obstructive pulmonary disease, unspecified; E78.00 Pure hypercholesterolemia, unspecified; Z88.7 Allergy status to serum and vaccine; Z96.659 Presence of unspecified artificial knee joint